=== PATIENT | female | born 2000 | race Caucasian/White ===

== ENCOUNTER 2018-05-09 19:00 | Inpatient (IN) | payer BC ==
[~2018-05-09] VITALS: Ht 154.9 cm; Wt 62.3 kg
[2018-05-09 19:32] LABS: MEAN CORPUSCULAR HEMOGLOBIN 29.7 pg (27.0-34.8); MEAN CORPUSCULAR HGB CONC 34.2 g/dL (32.4-35.8); MEAN CORPUSCULAR VOLUME 86.8 fL (80-100); MEAN PLATELET VOLUME 8.6 fL (7.4-10.4); PLATELET COUNT 214 x10^3/uL (130-400); RED BLOOD COUNT 4.75 x10^6/uL (3.82-5.3); RED CELL DISTRIBUTION WIDTH 14.5 % (9.6-15.2)
[2018-05-09 19:38] LABS: ALANINE AMINOTRANSFERASE 33 U/L (12-78); ALBUMIN 4.1 g/dL (3.4-5.0); ANION GAP 10 mmol/L (5-15); CHLORIDE 102 mmol/L (98-107); CREATININE 1.24 mg/dL (0.55-1.02)
[2018-05-09] MEDS ORDERED: BIRTH CONTROL PO (19:39)
[2018-05-09 19:42] LABS: ALKALINE PHOSPHATASE 70 U/L (45-117); BILIRUBIN,TOTAL 2.3 mg/dL (0.2-1.0); TOTAL PROTEIN 8.6 g/dL (6.4-8.2)
[2018-05-09 20:13] LABS: MD YES
[2018-05-09] MEDS ORDERED: IBUPROFEN 200 MG TABLET ONE (20:14)
[2018-05-09] MEDS ORDERED: ACETAMINOPHEN 500 MG TABLET ONE (20:14)
[2018-05-09 20:17] LABS: BAND#(MANUAL) 1.94 x10^3/uL; BANDS%(MANUAL) 11 % (0-7); LYMPH#(MANUAL) 0.88 x10^3/uL (1-6.1); LYMPHS% (MANUAL) 5 % (22-44); MONOS#(MANUAL) 1.76 x10^3/uL (0.3-2.7); MONOS% (MANUAL) 10 % (2-9); SEG#(MANUAL) 13.02 x10^3/uL (1.8-8); SEGS% (MANUAL) 74 % (42-75)
[2018-05-09 20:18] LABS: <PLATELET ESTIMATE> ADEQUATE; <PLT MORPHOLOGY> NORMAL PLT MORPH; <RBC MORPHOLOGY> NORMAL
[2018-05-09] MEDS ORDERED: SODIUM CHLORIDE FLUSH 10ML SYR IVF ONE (20:30)
[2018-05-09] MEDS ORDERED: SODIUM CHLORIDE 0.9% 1,000ML IVBOLUS ONE ×2 (20:30→21:30)
[2018-05-09] MEDS ORDERED: ACETAMINOPHEN 500 MG TABLET PO ONE (20:30)
[2018-05-09] MEDS ORDERED: IBUPROFEN 200 MG TABLET PO ONE (20:30)
[2018-05-09 20:42] LABS: MICROSCOPIC INDICATED
[2018-05-09 20:44] LABS: CULTURE INDICATED? YES
[2018-05-09] MEDS ORDERED: KETOROLAC 30 MG/1 ML ONE (21:23)
[2018-05-09] MEDS ORDERED: CEFTRIAXONE PMX 1GM/50ML 50 ML ONE (21:24)
[2018-05-09] MEDS ORDERED: CEFTRIAXONE 1,000 MG in SODIUM CHLORIDE 0.9% 50 ML IV ONE (21:30)
[2018-05-09] MEDS ORDERED: KETOROLAC 60 MG/2 ML IV ONE (21:30)
[2018-05-09] MEDS ORDERED: ONDANSETRON ODT 4 MG PO PRN (21:30)
[2018-05-09] MEDS: ENOXAPARIN 40 MG/0.4 ML SQ SCH (21:30)
[2018-05-09] MEDS ORDERED: POLYETHYLENE GLYCOL 17 GM PACKET PO PRN (21:30)
[2018-05-09 22:12] VITALS: BP 99/59
[2018-05-09] MEDS: LACTATED RINGERS 1,000 ML IV SCH (22:42)
[2018-05-09] MEDS: morphine SULFATE 10 MG/ML, 1ML IVPush PRN (22:43)
[2018-05-10 02:29] VITALS: BP 101/64
[2018-05-10] MEDS: LACTATED RINGERS 1,000 ML IV SCH ×3 (04:45→21:06)
[2018-05-10 05:09] LABS: ANION GAP 7 mmol/L (5-15); CALCIUM 7.8 mg/dL (8.5-10.1); CHLORIDE 110 mmol/L (98-107)
[2018-05-10 05:11] LABS: CREATININE 0.84 mg/dL (0.55-1.02)
[2018-05-10 05:27] LABS: BASOPHILS % (AUTO) 0 % (0-1); EOSINOPHILS # (AUTO) 0.01 x10^3/uL (0-0.8); EOSINOPHILS % (AUTO) 0 % (1-7); LYMPHOCYTES % (AUTO) 9 % (22-44); MD NO; MEAN CORPUSCULAR HEMOGLOBIN 28.9 pg (27.0-34.8); MEAN CORPUSCULAR HGB CONC 33.1 g/dL (32.4-35.8); MEAN CORPUSCULAR VOLUME 87.4 fL (80-100); MEAN PLATELET VOLUME 9.2 fL (7.4-10.4); MONOCYTES # (AUTO) 1.15 x10^3/uL (0-1.4); MONOCYTES % (AUTO) 10 % (2-9); NEUTROPHILS # (AUTO) 9.84 x10^3/uL (1.8-8.0); NEUTROPHILS % (AUTO) 81 % (42-75); PLATELET COUNT 162 x10^3/uL (130-400); RED BLOOD COUNT 4.43 x10^6/uL (3.82-5.3); RED CELL DISTRIBUTION WIDTH 14.2 % (9.6-15.2)
[2018-05-10] MEDS ORDERED: POTASSIUM CHLORIDE 20 MEQ TAB.ER.PRT PO ONE (06:30)
[2018-05-10] MEDS ORDERED: POTASSIUM PHOSPHATE 22 MEQ in SODIUM CHLORIDE 0.9% 500 ML IV ONE (06:30)
[2018-05-10 07:13] VITALS: BP 96/63
[2018-05-10] MEDS ORDERED: LEVO500T47 PO (09:53)
[2018-05-10] MEDS: ACETAMINOPHEN 325 MG TABLET PO PRN ×3 (10:28→22:19)
[2018-05-10 13:27] VITALS: BP 99/65
[2018-05-10] MEDS: CEFTRIAXONE 2 GM in SODIUM CHLORIDE 0.9% 50 ML IV SCH (15:21)
[2018-05-10] MEDS: MEPERIDINE/PF 50 MG/ML IVPush PRN ×2 (15:47→22:29)
[2018-05-10] MEDS: ONDANSETRON 2MG/ML, 2ML IVPush PRN ×2 (15:58→22:18)
[2018-05-10] MEDS: ENOXAPARIN 40 MG/0.4 ML SQ SCH (21:06)
[2018-05-10 21:38] VITALS: BP 103/62
[2018-05-11 02:07] VITALS: BP 100/63
[2018-05-11 04:59] LABS: BASOPHILS # (AUTO) 0.01 x10^3/uL (0-0.3); BASOPHILS % (AUTO) 0 % (0-1); EOSINOPHILS % (AUTO) 0 % (1-7); LYMPHOCYTES # (AUTO) 0.79 x10^3/uL (1-6.1); LYMPHOCYTES % (AUTO) 9 % (22-44); MD NO; MEAN CORPUSCULAR HGB CONC 33.2 g/dL (32.4-35.8); MEAN CORPUSCULAR VOLUME 87.3 fL (80-100); MEAN PLATELET VOLUME 9.9 fL (7.4-10.4); MONOCYTES # (AUTO) 1.28 x10^3/uL (0-1.4); MONOCYTES % (AUTO) 14 % (2-9); NEUTROPHILS # (AUTO) 6.93 x10^3/uL (1.8-8.0); NEUTROPHILS % (AUTO) 77 % (42-75); PLATELET COUNT 144 x10^3/uL (130-400); RED BLOOD COUNT 3.87 x10^6/uL (3.82-5.3); RED CELL DISTRIBUTION WIDTH 13.6 % (9.6-15.2)
[2018-05-11 05:02] LABS: CHLORIDE 108 mmol/L (98-107)
[2018-05-11 05:09] LABS: ALANINE AMINOTRANSFERASE 26 U/L (12-78); ALBUMIN 2.6 g/dL (3.4-5.0); ALKALINE PHOSPHATASE 53 U/L (45-117); ANION GAP 6 mmol/L (5-15); BILIRUBIN,TOTAL 1.1 mg/dL (0.2-1.0); CALCIUM 7.5 mg/dL (8.5-10.1); CREATININE 0.76 mg/dL (0.55-1.02); TOTAL PROTEIN 6.2 g/dL (6.4-8.2)
[2018-05-11 07:08] VITALS: BP 114/71
[2018-05-11] MEDS: MEPERIDINE/PF 50 MG/ML IVPush PRN ×2 (08:37→20:19)
[2018-05-11] MEDS: ACETAMINOPHEN 325 MG TABLET PO PRN ×2 (08:37→20:19)
[2018-05-11] MEDS: LACTATED RINGERS 1,000 ML IV SCH ×3 (08:42→20:07)
[2018-05-11 12:14] VITALS: BP 93/52
[2018-05-11] MEDS: CEFTRIAXONE 2 GM in SODIUM CHLORIDE 0.9% 50 ML IV SCH (15:55)
[2018-05-11 20:05] VITALS: BP 124/78
[2018-05-11] MEDS: ENOXAPARIN 40 MG/0.4 ML SQ SCH (21:30)
[2018-05-12 01:19] VITALS: BP 99/67
[2018-05-12] MEDS: LACTATED RINGERS 1,000 ML IV SCH (04:53)
[2018-05-12] MEDS: morphine SULFATE 10 MG/ML, 1ML IVPush PRN ×2 (05:37→20:22)
[2018-05-12 06:46] VITALS: BP 113/69
[2018-05-12] MEDS: ACETAMINOPHEN 325 MG TABLET PO PRN (07:59)
[2018-05-12 12:30] VITALS: BP 95/59
[2018-05-12] MEDS ORDERED: OMNIPAQUE 350 MG/ML, 100ML BOTTLE ONE (13:27)
[2018-05-12] MEDS: CEFTRIAXONE 2 GM in SODIUM CHLORIDE 0.9% 50 ML IV SCH (15:01)
[2018-05-12 15:39] LABS: MICROSCOPIC AUTO
[2018-05-12 15:58] LABS: CULTURE INDICATED? YES
[2018-05-12] MEDS ORDERED: MORPHINE SULFATE 4 MG/ML, 1ML ONE (20:17)
[2018-05-12] MEDS: ENOXAPARIN 40 MG/0.4 ML SQ SCH (20:23)
[2018-05-12] MEDS ORDERED: LACTATED RINGERS 1,000 ML IV SCH (21:30)
[2018-05-12 21:45] VITALS: BP 119/76
[2018-05-13 02:11] VITALS: BP 108/69
[2018-05-13] MEDS ORDERED: MORPHINE SULFATE 4 MG/ML, 1ML ONE (02:19)
[2018-05-13] MEDS: morphine SULFATE 10 MG/ML, 1ML IVPush PRN ×2 (02:24→10:29)
[2018-05-13 08:03] VITALS: BP 112/57
[2018-05-13] MEDS ORDERED: LEVOFLOXACIN/PMX 750MG/150ML 150 ML IV SCH (09:00)
[2018-05-13 10:12] LABS: MEAN CORPUSCULAR HEMOGLOBIN 28.8 pg (27.0-34.8); MEAN CORPUSCULAR HGB CONC 33.2 g/dL (32.4-35.8); MEAN CORPUSCULAR VOLUME 86.6 fL (80-100); MEAN PLATELET VOLUME 9.1 fL (7.4-10.4); PLATELET COUNT 189 x10^3/uL (130-400); RED BLOOD COUNT 3.88 x10^6/uL (3.82-5.3)
[2018-05-13] MEDS: ACETAMINOPHEN 325 MG TABLET PO PRN (10:30)
[2018-05-13 10:31] LABS: BASOPHILS # (AUTO) 0.01 x10^3/uL (0-0.3); BASOPHILS % (AUTO) 0 % (0-1); EOSINOPHILS # (AUTO) 0.03 x10^3/uL (0-0.8); EOSINOPHILS % (AUTO) 1 % (1-7); LYMPHOCYTES # (AUTO) 1.13 x10^3/uL (1-6.1); LYMPHOCYTES % (AUTO) 27 % (22-44); MD SCAN; MONOCYTES # (AUTO) 0.53 x10^3/uL (0-1.4); MONOCYTES % (AUTO) 13 % (2-9); NEUTROPHILS # (AUTO) 2.43 x10^3/uL (1.8-8.0); NEUTROPHILS % (AUTO) 59 % (42-75)
[2018-05-13 13:05] VITALS: BP 117/72
== END 2018-05-13 18:14 | disposition home or self-care (01) | DRG 871 ==
LOC: ED 19:52 → EDIP 21:13 → SUATTDRO 21:13 → 3NW 21:47
PROVIDERS: ADMIT Hospitalist; ATTEND Hospitalist
DX: A41.9 Sepsis, unspecified organism (principal); E43 Unspecified severe protein-calorie malnutrition; N12 Tubulo-interstitial nephritis, not specified as acute or chronic; N17.9 Acute kidney failure, unspecified; B96.20 Unspecified Escherichia coli [E. coli] as the cause of diseases classified elsewhere; D64.9 Anemia, unspecified; E86.9 Volume depletion, unspecified; R21 Rash and other nonspecific skin eruption; F12.90 Cannabis use, unspecified, uncomplicated; W57.XXXA Bitten or stung by nonvenomous insect and other nonvenomous arthropods, initial encounter; R65.20 Severe sepsis without septic shock; Z68.26 Body mass index [BMI] 26.0-26.9, adult; Y93.89 Activity, other specified; Y92.89 Other specified places as the place of occurrence of the external cause; Y99.8 Other external cause status
CPT/HCPCS: 36415; 71045; 74177; 80048; 80053; 81001; 82962; 83605; 83690; 83735; 84100; 84703; 85025; 87040; 87077; 87086; 87186; 93005; 96361; 96374; J0696; J1650; J1885; J1956; J2175; J2405; Q0162; Q9967; J2270; J7030; J7040; J7120